=== PATIENT | male | born 1950 | race Caucasian/White ===

== ENCOUNTER 2018-01-04 23:37 | Inpatient (IN) | payer OTHER ==
[~2018-01-04] VITALS: Ht 182.9 cm; Wt 84.9 kg
[2018-01-04 23:54] VITALS: Ht 182.9 cm; Wt 84.9 kg
[2018-01-05] VITALS (8 sets, daily range): BP systolic 94–118; BP diastolic 57–83
[2018-01-05] MEDS ORDERED: COU1 PO (00:19)
[2018-01-05] MEDS ORDERED: FUROSEMIDE20 MG PO (00:21)
[2018-01-05] MEDS ORDERED: DIGOXIN0.125 M1 (00:22)
[2018-01-05] MEDS ORDERED: CARVEDILOL3.125 M1 PO (00:22)
[2018-01-05 01:11] LABS: BASOPHIL % 0.5 % (0-2)
[2018-01-05 01:15] LABS: PLATELET COUNT 413 x10^3mcL (130-400); RED CELL DISTRIBUTION WIDTH 15.6 % (11.5-14.5)
[2018-01-05 01:23] LABS: CALCIUM 9.1 mg/dL (8.5-10.1); CARBON DIOXIDE 28.9 mmol/L (21-32); CHLORIDE SERUM 103 mmol/L (98-107); GFR1 > 60 mL/min; GLUCOSE SERUM 96 mg/dL (74-106); SODIUM SERUM 136 mmol/L (136-145)
[2018-01-05 01:28] LABS: ALBUMIN 2.7 g/dL (3.4-5.0); ALKALINE PHOSPHATASE 141 U/L (46-116); ALT/SGPT 43 U/L (16-63); AST/SGOT 29 U/L (15-37); BILIRUBIN TOTAL 0.72 mg/dL (0.20-1.00); TOTAL PROTEIN, SERUM 7.4 g/dL (6.4-8.2)
[2018-01-05 04:09] LABS: T3 TOTAL 1.01 ng/mL
[2018-01-05 04:11] LABS: FREE T4 1.38 ng/dL (0.76-1.46); FREE THYROXINE INDEX 3.2 ug/dL (1.4-4.5)
[2018-01-05 04:25] LABS: MAGNESIUM 2.3 mg/dL (1.8-2.4); PHOSPHOROUS 3.6 mg/dL (2.5-4.9)
[2018-01-05 04:27] LABS: CHOLESTEROL/HDL RATIO 5.1
[2018-01-05 10:31] LABS: microscopic required? NO
[2018-01-05 10:46] LABS: urine erythrocyte NEGATIVE (NEGATIVE)
[2018-01-05 10:56] LABS: AMPHETAMINE QUAL UR NONE DETECTED (See below)
[2018-01-06 05:22] VITALS: BP 102/65
[2018-01-06 05:50] LABS: BASOPHIL % 0.4 % (0-2); PLATELET COUNT 388 x10^3mcL (130-400)
[2018-01-06 05:51] LABS: CALCIUM 8.6 mg/dL (8.5-10.1); CARBON DIOXIDE 27.6 mmol/L (21-32); CHLORIDE SERUM 103 mmol/L (98-107); CREATININE SERUM 1.1 mg/dL (0.7-1.3); GFR1 > 60 mL/min; GLUCOSE SERUM 89 mg/dL (74-106); MAGNESIUM 2.2 mg/dL (1.8-2.4); POTASSIUM SERUM 4.1 mmol/L (3.5-5.1); SODIUM SERUM 137 mmol/L (136-145)
[2018-01-06 05:57] LABS: RED CELL DISTRIBUTION WIDTH 15.2 % (11.5-14.5)
[2018-01-06 09:00] VITALS: BP 88/51
[2018-01-06] MEDS ORDERED: LIPI10 PO (10:23)
[2018-01-06 12:52] VITALS: BP 102/65
[2018-01-06] MEDS ORDERED: LEVAQUIN750 MG PO (13:23)
[2018-01-06] MEDS ORDERED: FLA500 PO (13:25)
[2018-01-06 13:30] VITALS: BP 105/77
== END 2018-01-06 15:00 | disposition home or self-care (01) | DRG 177 ==
LOC: ED 23:37 → DU 01-05 03:04
PROVIDERS: Emergency Medicine; Internal Medicine
DX: J69.0 Pneumonitis due to inhalation of food and vomit (principal); N17.0 Acute kidney failure with tubular necrosis; E43 Unspecified severe protein-calorie malnutrition; I42.9 Cardiomyopathy, unspecified; R04.2 Hemoptysis; I42.7 Cardiomyopathy due to drug and external agent; T43.621S Poisoning by amphetamines, accidental (unintentional), sequela; T40.5X1S Poisoning by cocaine, accidental (unintentional), sequela; I34.0 Nonrheumatic mitral (valve) insufficiency; I48.2 Chronic atrial fibrillation; F15.10 Other stimulant abuse, uncomplicated; F14.10 Cocaine abuse, uncomplicated; R73.03 Prediabetes; I10 Essential (primary) hypertension; J44.9 Chronic obstructive pulmonary disease, unspecified; I25.2 Old myocardial infarction; Z68.25 Body mass index [BMI] 25.0-25.9, adult; Z79.01 Long term (current) use of anticoagulants; Z86.73 Personal history of transient ischemic attack (TIA), and cerebral infarction without residual deficits
CPT/HCPCS: 83880; 84439; C9113; G0480; J1940; J2270; J2543; J7030; J7620; Q0092; Q9967